=== PATIENT | male | born 1995 | race Caucasian/White ===

== ENCOUNTER 2017-10-21 11:25 | Emergency (ER) | payer MEDICAID, SELFPAY ==
[2017-10-21 11:26] VITALS: BP 147/80; PULSE 82; RESP 17; TEMP 37.6; O2SAT 96; BMI 27.6
--- NOTE | 2017-10-21 11:57 | ED.VISSUMM ---
- ER Visit Summary Date of Service: 10/21/17 Chief Complaint: Cough History of Present Illness: The patient is a 22 M is negative past medical history. States since yesterday he is at a cough of yellowish phlegm. No fever. No shortness of breath. No abdominal pain no vomiting. Physical Examination: Well appearing young male. Vital signs are stable afebrile. Pulse ox 96% on room air no signs of hypoxia. No distress. HEENT exam TMs are unremarkable bilaterally. Moist mucous membranes. Unremarkable posterior pharynx. No exudate. No trouble swallowing or breathing. Nasal congestion. No purulent discharge. No frontal or maxillary sinus tenderness. Neck nontender no meningismus. Able to touch chin to chest. No lymphadenopathy. Lungs clear to auscultation bilaterally. No rales, rhonchi or wheezing. Dry cough. Heart regular rhythm rate about 80. No murmur. Abdomen soft nontender. Moving all 4 extremities. Neurovascularly intact. Back nontender. Neurologic exam normal. Test Results: None Emergency Department Course and Treatment: Exam and history consistent with viral URI. Treatment Plan: Cough syrup as needed. Disposition: Discharge Impression: Viral URI This note was generated with [employer] dictation software. It may contain incorrect words, spelling, and punctuation that were not noted in review of the chart prior to signing ED Disposition - Plan for ED Patient: Chief Complaint: Cold Sx Referrals: J Luis Alva,Out of [Primary Care Provider] -
--- NOTE | 2017-10-21 11:59 | ED.DEP ---
ED Disposition - Plan for ED Patient: Disposition: Home or Assisted Living Chief Complaint: Cold Sx Instructions: ED Upper Resp Infec No Abx Tx Prescriptions: Guaifenesin [Robitussin] 10 ml PO Q4H PRN PRN 4 Days udc PRN Reason: Cough Referrals: [facility],Out of [Primary Care Provider] - 10-14 Days if not better Additional Instructions: Cough syrup as needed. Stop smoking.
[2017-10-21 12:00] VITALS: BP 136/78; PULSE 80; RESP 14; O2SAT 98
== END 2017-10-21 12:25 | disposition home or self-care (01) ==
LOC: ED 12:19
PROVIDERS: Emergency Provider Emergency Medicine
DX: J06.9 Acute upper respiratory infection, unspecified (principal); Z72.0 Tobacco use
CPT/HCPCS: 99282